=== PATIENT | female | born 1960 | race Caucasian/White ===

== ENCOUNTER 2020-06-16 17:44 | Emergency (ER) | payer BC ==
[2020-06-16] MEDS ORDERED: Dexamethasone 4 MG/ML SDV IVPUSH ONE (17:56)
[2020-06-16] MEDS ORDERED: Prochlorperazine 10 MG/2 ML SDV IVPUSH ONE (17:56)
[2020-06-16] MEDS ORDERED: Sodium Chloride 0.9% 10 ML Syringe FLUSH PRN (17:56)
[2020-06-16] MEDS ORDERED: Magnesium Sulfate/Water 2 GM/50 ML BAG IV ONE (17:56)
[2020-06-16] MEDS ORDERED: diphenhydrAMINE 50 MG/ML SDV IVPUSH ONE (17:56)
[2020-06-16] MEDS ORDERED: Sodium Chloride 0.9% 1,000 ML IV ONE (17:57)
--- NOTE | 2020-06-16 18:07 | EDM.PDOC ---
ED HPI GENERAL MEDICAL PROBLEM - General Chief Complaint: Headache Stated Complaint: [facility]ICAL [facility] Time Seen by Provider: 06/16/20 17:52 Source of Information: Reports: Patient, EMS History Limitations: Reports: No Limitations - History of Present Illness INITIAL COMMENTS - FREE TEXT/NARRATIVE: Lilian Hunter (Terry) is a 60-year-old female presenting to the emergency room via [facility] for evaluation and treatment of a migraine headache. Fabian has a very complicated past medical history including recently being discharged from [facility] in [place] for severe thrombocytopenia with a platelet count of 4 causing petechiae. She did receive transfusion and was hospitalized for 2 days for observation. 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 She has had 6 rounds of chemotherapy with the last being in March 2020. She has been on oral suppressive therapy. She does have a history for migraines and has had a headache from even when she was in the hospital in [place] but has not resolved. She has been taking sumatriptan hand twice daily without much relief. She has had significant nausea and has been dry heaving but has not had any emesis. The headache is been predominantly in the left frontal region and is throbbing in nature. The patient has photophobia but denies phonophobia. She states that this is classic for her migraine headaches. She denies any trauma. She denies any fever, chills, cough or shortness of breath, diarrhea or abdominal pain, loss of taste or smell, and body aches. Headache Pain Score (Numeric/FACES): 8 - Related Data Allergies Allergy/AdvReac Type Severity Reaction Status Date / Time No Known Allergies Allergy Verified 06/16/20 17:56 Home Meds: Home Meds Mag-Oxide 400 mg PO DAILY 06/16/20 [History] Metoprolol Succinate [Toprol XL] 25 mg PO BEDTIME 06/16/20 [History] Metoprolol Succinate [Toprol Xl] 50 mg PO DAILY 06/16/20 [History] Niraparib Tosylate [Zejula] 100 mg PO DAILY 06/16/20 [History] ZOLMitriptan [Zomig] 5 mg PO BID PRN 06/16/20 [History] ED ROS GENERAL - Review of Systems Review Of Systems: See Below Constitutional: Reports: Decreased Appetite HEENT: Reports: No Symptoms Respiratory: Reports: No Symptoms Cardiovascular: Reports: No Symptoms Endocrine: Reports: Other (The patient recently underwent evaluation of a possible thyroid nodule while hospitalized at [facility].) GI/Abdominal: Reports: Nausea, Vomiting (Dry heaving) : Reports: No Symptoms Musculoskeletal: Reports: No Symptoms Skin: Reports: Other (Patient has petechiae on the upper and lower extremities likely related to her recent thrombopenia.) Neurological: Reports: Headache, Other (Photophobia). Denies: Numbness, Paresthesia, Tingling, Difficulty Walking, Weakness Psychiatric: Reports: No Symptoms Hematologic/Lymphatic: Reports: Easy Bleeding, Easy Bruising, Other (Petechiae) Immunologic: Reports: No Symptoms - Physical Exam Exam: See Below Exam Limited By: No Limitations General Appearance: Alert, Mild Distress Eye Exam: Bilateral Eye: EOMI, PERRL Nose: Normal Inspection, Normal Mucosa Throat/Mouth: Normal Voice, Other (Very dry mucous membranes). No: Normal Lips, Normal Oropharynx Head Exam: Atraumatic, Normocephalic Neck: Normal Inspection, Supple, Non-Tender, Full Range of Motion Respiratory/Chest: No Respiratory Distress, Lungs Clear, Normal Breath Sounds Cardiovascular: Normal Peripheral Pulses, Regular Rate, Rhythm, No Edema, No Murmur GI/Abdominal: Normal Bowel Sounds, Soft, Non-Tender, No Distention. No: Guarding, Rigid, Rebound Neuro Exam (Abbreviated): Alert, Oriented, CN II-XII Intact, Normal Cognition, No Motor/Sensory Deficits Extremities: Normal Inspection, Normal Range of Motion, Non-Tender, No Pedal Edema Psychiatric: Normal Affect, Normal Mood Skin Exam: Warm, Dry, Intact, Petechiae (On upper and lower extremities likely related to her recent thrombopenia) Course - Vital Signs Last Recorded V/S: Last Vital Signs Temp 36.6 C 06/16/20 17:52 Pulse 92 06/16/20 19:43 Resp 20 06/16/20 17:52 BP 108/82 06/16/20 19:43 Pulse Ox 96 06/16/20 19:43 - Orders/Labs/Meds Orders: Active Orders 24 hr Category Date Time Status Sodium Chloride 0.9% [Saline Flush] Med 06/16/20 17:56 Active 10 ml FLUSH ASDIRECTED PRN Saline Lock Insert [OM.PC] Routine Oth 06/16/20 17:56 Ordered Medication Orders Sodium Chloride (Saline Flush) 10 ml FLUSH ASDIRECTED PRN PRN Reason: Keep Vein Open Last Admin: 06/16/20 18:58 Dose: 10 ml Documented by: PREILOR Labs: Laboratory Tests 06/16/20 Range/Units 18:15 WBC 2.1 L (4.5-11.0) K/uL RBC 3.18 L (3.30-5.50) M/uL Hgb 9.8 L (12.0-15.0) g/dL Hct 29.7 L (36.0-48.0) % MCV 93 (80-98) fL MCH 31 (27-31) pg MCHC 33 (32-36) % Plt Count 52 L (150-400) K/uL Meds: Medications Generic Name Dose Route Start Last Admin Trade Name Freq PRN Reason Stop Dose Admin Sodium Chloride 10 ml 06/16/20 17:56 06/16/20 18:58 Saline Flush FLUSH 10 ml ASDIRECTED PRN Administration Keep Vein Open Discontinued Medications Generic Name Dose Route Start Last Admin Trade Name Freq PRN Reason Stop Dose Admin Dexamethasone 10 mg 06/16/20 17:56 06/16/20 18:51 Decadron IVPUSH 06/16/20 17:57 10 mg ONETIME ONE Administration Diphenhydramine HCl 50 mg 06/16/20 17:56 06/16/20 18:49 Benadryl IVPUSH 06/16/20 17:57 50 mg ONETIME ONE Administration Magnesium Sulfate 2 gm in 50 mls @ 25 mls/hr 06/16/20 17:56 06/16/20 18:47 Magnesium Sulfate In Water Premix IV 06/16/20 19:55 25 mls/hr ONETIME ONE Administration Sodium Chloride 1,000 mls @ 999 mls/hr 06/16/20 17:57 06/16/20 18:41 Normal Saline IV 06/16/20 18:57 999 mls/hr .BOLUS ONE Administration Magnesium Sulfate Confirm 06/16/20 18:44 06/16/20 18:58 Magnesium Sulfate In Water Premix Administered 06/16/20 18:45 Not Given Dose 2 gm in 50 mls @ as directed .ROUTE .STK-MED ONE Prochlorperazine Edisylate 10 mg 06/16/20 17:56 06/16/20 18:55 Compazine IVPUSH 06/16/20 17:57 10 mg ONETIME ONE Administration - Re-Assessments/Exams Free Text/Narrative Re-Assessment/Exam: 06/16/20 18:13 an IV was established and we infused a liter of normal saline. I did order a CBC just to verify that there was no significant hematologic abnormality at this time as she was just released from [facility] after being transfused. In addition to the normal saline we will give her magnesium sulfate 2 g IV, Compazine 10 mg IV, diphenhydramine 50 mg IV, and dexamethasone 10 mg IV. These are the standard cocktail I used for treatment of migraine headache barring any allergies to these medications. Because of the significant thrombocytopenia, we will hold off on using NSAIDs like Toradol at this time. Departure - Departure Time of Disposition: 20:37 Disposition: Home, Self-Care 01 Condition: Good Clinical Impression: Migraine headache Qualifiers: Migraine type: unspecified Status migrainosus presence: with status migrainosus Intractability: intractable Qualified Code(s): G43.911 - Migraine, unspecified, intractable, with status migrainosus - Discharge Information Instructions: Migraine Headache, [id number] Referrals: PCP,None [Primary Care Provider] - Forms: ED Department Discharge Care Plan Goals: I am glad you are feeling better. I would encourage you to go home and get some rest. You may resume your sumatriptan as needed with a limit of 2/day. Should you have significant headache as you presented with please return to the ED for reevaluation. Good luck with your treatments. The good news is that your blood counts have come up a couple points each today as compared to 1 your last was taken at [facility]. Your platelet count is now 52,000. Sepsis Event Note (ED) - Evaluation Sepsis Screening Result: No Definite Risk - Focused Exam Vital Signs: Vital Signs Temp Pulse Resp BP Pulse Ox 06/16/20 19:43 92 108/82 96 06/16/20 17:52 36.6 C 106 H 20 128/101 H 100 - Problem List & Annotations (1) Migraine headache SNOMED Code(s): 19197024 Code(s): G43.909 - MIGRAINE, UNSP, NOT INTRACTABLE, WITHOUT STATUS MIGRAINOSUS Status: Acute Priority: Medium Current Visit: Yes Qualifiers: Migraine type: unspecified Status migrainosus presence: with status migrainosus Intractability: intractable Qualified Code(s): G43.911 - Migraine, unspecified, intractable, with status migrainosus - Problem List Review Problem List Initiated/Reviewed/Updated: Yes - My Orders Last 24 Hours: My Active Orders 06/16/20 17:56 Sodium Chloride 0.9% [Saline Flush] 10 ml FLUSH ASDIRECTED PRN Saline Lock Insert [OM.PC] Routine - Assessment/Plan Last 24 Hours: My Active Orders 06/16/20 17:56 Sodium Chloride 0.9% [Saline Flush] 10 ml FLUSH ASDIRECTED PRN Saline Lock Insert [OM.PC] Routine
[2020-06-16] MEDS ORDERED: Magnesium Sulfate/Water 2 GM/50 ML BAG ONE (18:44)
[2020-06-16 19:43] VITALS: BP 108/82; PULSE 92
== END 2020-06-16 20:56 | disposition home or self-care (01) ==
LOC: JP.ED 17:44
DX: G43.911 Migraine, unspecified, intractable, with status migrainosus (principal)
CPT/HCPCS: 36415; 85027; 96365; 96366; 96375; 99284; J0780; J1100; J1200; J3475; J7030